=== PATIENT | male | born 1955 | race Caucasian/White ===

== ENCOUNTER 2016-06-29 10:57 | Inpatient (IN) | payer BC ==
[2016-06-29] MEDS ORDERED: COLCHICINE 0.6 MG TAB PO STA (11:07)
[2016-06-29] MEDS ORDERED: ATORVASTATIN 40 MG TAB PO STA (11:08)
--- NOTE | 2016-06-29 11:13 | ED ---
General Adult HPI - General Chief complaint: Chest Pain Stated complaint: Stemi Time Seen by Provider: 06/29/16 10:57 Source: patient, RN notes reviewed Mode of arrival: EMS Limitations: no limitations - History of Present Illness Initial comments: This is a 60-year-old male who presents to the emergency department complaining of chest pain. Patient states on Sunday he was vomiting and had what he thought was a stomach flu. Patient states on Sunday he felt better on Sunday he still wasn't feeling quite himself however yesterday he started having upper chest pain particularly when he took a deep breath or late flat. Patient states the only time he didn't seem to have this upper chest pain was when he leaned forward sitting up. Patient states this persisted throughout the day today so he went to see his medical doctor. At that office they did a EKG and were concerned about the EKG showed a sent him to the emergency department. Patient states he is not short of breath he is denying palpitations. Patient denies any recent fever or chills or cough. Patient states he's had no upper respiratory like symptoms. Patient denies any current abdominal pain he denies any recent diarrheal episodes. Patient states his he lays here he has no pain if he lies flat it will come on in the upper part of his chest or takes a very large breath. - Related Data Home Medications Medication Instructions Recorded Confirmed Fenofibrate,Micronized 134 mg PO DAILY 06/29/16 06/29/16 [Fenofibrate] Zolpidem Tartrate [Zolpidem 10 mg PO HS 06/29/16 06/29/16 Tartrate] Allergies Allergy/AdvReac Type Severity Reaction Status Date / Time No Known Allergies Allergy Verified 06/29/16 11:59 Review of Systems ROS Statement: Those systems with pertinent positive or pertinent negative responses have been documented in the HPI. ROS Other: All systems not noted in ROS Statement are negative. Past Medical History Past Medical History: Hyperlipidemia History of Any Multi-Drug Resistant Organisms: None Reported Past Surgical History: Tonsillectomy Additional Past Surgical History / Comment(s): ear operation,, vasectomy Past Psychological History: Anxiety Smoking Status: Former smoker Past Alcohol Use History: None Reported Past Drug Use History: None Reported General Exam - General Exam Comments Initial Comments: GENERAL: Patient is well-developed and well-nourished. Patient is nontoxic and well- hydrated and is in mild distress. ENT: Neck is soft and supple. No significant lymphadenopathy is noted. Oropharynx is clear. Moist mucous membranes. Neck has full range of motion without eliciting any pain. There is no thyroid enlargement and no masses were felt. EYES: The sclera were anicteric and conjunctiva were pink and moist. Extraocular movements were intact and pupils were equal round and reactive to light. Eyelids were unremarkable. PULMONARY: Unlabored respirations. Good breath sounds bilaterally. No audible rales rhonchi or wheezing was noted. CARDIOVASCULAR: There is a regular rate and rhythm without any murmurs gallops or rubs. ABDOMEN: Soft and nontender with normal bowel sounds. No palpable organomegaly was noted. There is no palpable pulsatile mass. SKIN: Skin is clear with no lesions or rashes and otherwise unremarkable. NEUROLOGIC: Patient is alert and oriented x3. Cranial nerves II through XII are grossly intact. Motor and sensory are also intact. Normal speech, volume and content. Symmetrical smile. MUSCULOSKELETAL: Normal extremities with adequate strength and full range of motion. No lower extremity swelling or edema. No calf tenderness. LYMPHATICS: No significant lymphadenopathy is noted PSYCHIATRIC: Normal psychiatric evaluation. Limitations: no limitations Course Vital Signs 06/29/16 06/29/16 10:58 11:14 Temperature 98.7 F Pulse Rate 74 90 Respiratory 17 18 Rate Blood Pressure 123/74 114/70 O2 Sat by Pulse 95 99 Oximetry Medical Decision Making - Medical Decision Making Chest x-ray shows no acute abnormality. Dr. Mann came down and saw the patient in the emergency department he did not want any heparin started as he believed it to be pericarditis. He also requested a culture eliciting the started. - Lab Data Result diagrams: 06/29/16 11:05 06/29/16 11:05 Lab Results 06/29/16 06/29/16 06/29/16 Range/Units 11:05 11:05 11:05 WBC 12.1 H (3.8-10.6) k/uL RBC 5.00 (4.30-5.90) m/uL Hgb 15.0 (13.0-17.5) gm/dL Hct 43.0 (39.0-53.0) % MCV 86.0 (80.0-100.0) fL MCH 30.1 (25.0-35.0) pg MCHC 35.0 (31.0-37.0) g/dL RDW 13.1 (11.5-15.5) % Plt Count 222 (150-450) k/uL Neutrophils % 82 % Lymphocytes % 10 % Monocytes % 6 % Eosinophils % 0 % Basophils % 0 % Neutrophils # 10.0 H (1.3-7.7) k/uL Lymphocytes # 1.2 (1.0-4.8) k/uL Monocytes # 0.8 (0-1.0) k/uL Eosinophils # 0.0 (0-0.7) k/uL Basophils # 0.1 (0-0.2) k/uL PT (9.0-12.0) sec INR (<1.1) APTT (22.0-30.0) sec Sodium 145 (137-145) mmol/L Potassium 3.9 (3.5-5.1) mmol/L Chloride 108 H (98-107) mmol/L Carbon Dioxide 23 (22-30) mmol/L Anion Gap 14 mmol/L BUN 11 (9-20) mg/dL Creatinine 0.91 (0.66-1.25) mg/dL Est GFR (MDRD) Af Amer >60 (>60 ml/min/1.73 sqM) Est GFR (MDRD) Non-Af >60 (>60 ml/min/1.73 sqM) Glucose 129 H (74-99) mg/dL Calcium 10.0 (8.4-10.2) mg/dL Magnesium 1.5 L (1.6-2.3) mg/dL Total Bilirubin 1.4 H (0.2-1.3) mg/dL AST 37 (17-59) U/L ALT 67 (21-72) U/L Alkaline Phosphatase 50 (38-126) U/L Total Creatine Kinase 47 L (55-170) U/L CK-MB (CK-2) 0.4 (0.0-2.4) ng/mL CK-MB (CK-2) Rel Index 0.9 Troponin I <0.012 (0.000-0.034) ng/mL Total Protein 7.0 (6.3-8.2) g/dL Albumin 4.1 (3.5-5.0) g/dL 06/29/16 Range/Units 11:05 WBC (3.8-10.6) k/uL RBC (4.30-5.90) m/uL Hgb (13.0-17.5) gm/dL Hct (39.0-53.0) % MCV (80.0-100.0) fL MCH (25.0-35.0) pg MCHC (31.0-37.0) g/dL RDW (11.5-15.5) % Plt Count (150-450) k/uL Neutrophils % % Lymphocytes % % Monocytes % % Eosinophils % % Basophils % % Neutrophils # (1.3-7.7) k/uL Lymphocytes # (1.0-4.8) k/uL Monocytes # (0-1.0) k/uL Eosinophils # (0-0.7) k/uL Basophils # (0-0.2) k/uL PT 11.2 (9.0-12.0) sec INR 1.1 (<1.1) APTT 24.8 (22.0-30.0) sec Sodium (137-145) mmol/L Potassium (3.5-5.1) mmol/L Chloride (98-107) mmol/L Carbon Dioxide (22-30) mmol/L Anion Gap mmol/L BUN (9-20) mg/dL Creatinine (0.66-1.25) mg/dL Est GFR (MDRD) Af Amer (>60 ml/min/1.73 sqM) Est GFR (MDRD) Non-Af (>60 ml/min/1.73 sqM) Glucose (74-99) mg/dL Calcium (8.4-10.2) mg/dL Magnesium (1.6-2.3) mg/dL Total Bilirubin (0.2-1.3) mg/dL AST (17-59) U/L ALT (21-72) U/L Alkaline Phosphatase (38-126) U/L Total Creatine Kinase (55-170) U/L CK-MB (CK-2) (0.0-2.4) ng/mL CK-MB (CK-2) Rel Index Troponin I (0.000-0.034) ng/mL Total Protein (6.3-8.2) g/dL Albumin (3.5-5.0) g/dL Disposition Clinical Impression: Chest pain, Pericarditis Disposition: ADMITTED IP TO THIS [facility] Time of Disposition: 12:51
[2016-06-29] MEDS ORDERED: ACETAMINOPHEN TAB 500 MG TAB PO STA (11:19)
[2016-06-29] MEDS ORDERED: LORazepam 2 MG/ML SYRINGE IV STA (11:19)
[2016-06-29 11:37] LABS: Basophils # (A) 0.1 k/uL (0-0.2); Basophils % (A) 0 %; CH 30.8; Eosinophils % (A) 0 %; HDW 2.93; Luc # (Auto) 0.14; Luc % (Auto) 1; Lymphocytes # (A) 1.2 k/uL (1.0-4.8); Lymphocytes % (A) 10 %; MCH 30.1 pg (25.0-35.0); Mean Platelet Volume 7.9; Monocytes # (A) 0.8 k/uL (0-1.0); Monocytes % (A) 6 %; Neutrophils % (A) 82 %; RDW 13.1 % (11.5-15.5); WBC 12.1 k/uL (3.8-10.6); WBC (Perox) 11.89
[2016-06-29 11:49] LABS: ALT 67 U/L (21-72); AST 37 U/L (17-59); Alkaline Phosphatase 50 U/L (38-126); Anion Gap 14 mmol/L; Blood Urea Nitrogen 11 mg/dL (9-20); Carbon Dioxide 23 mmol/L (22-30); Chloride 108 mmol/L (98-107); Glucose 129 mg/dL (74-99); Magnesium 1.5 mg/dL (1.6-2.3); Non-African American GFR(MDRD) >60 (>60 ml/min/1.73 sqM); Potassium 3.9 mmol/L (3.5-5.1); Sodium 145 mmol/L (137-145); Total Bilirubin 1.4 mg/dL (0.2-1.3)
[2016-06-29 11:58] LABS: Creatine Kinase 47 U/L (55-170)
[2016-06-29] MEDS ORDERED: FAMOTIDINE 20 MG TAB PO STA (12:07)
[2016-06-29 12:08] LABS: INR 1.1 (<1.1); Partial Thromboplastin Time 24.8 sec (22.0-30.0); Prothrombin Time 11.2 sec (9.0-12.0)
[2016-06-29 12:12] LABS: Creatine Kinase MB 0.4 ng/mL (0.0-2.4); Troponin I <0.012 ng/mL (0.000-0.034)
--- NOTE | 2016-06-29 12:13 | XR ---
EXAMINATION TYPE: XR chest 2V DATE OF EXAM: 06/29/2016 12:06 PM COMPARISON: NONE INDICATION: Chest pain TECHNIQUE: Frontal and lateral views of the chest are obtained. FINDINGS: The heart size is normal. The pulmonary vasculature is normal. There are streak opacities at the right base and along the left heart border. Correlate for atelectas is. IMPRESSION: 1. Mild streak opacities bilateral lung bases. Correlate for atelectasis. Follow-up can be performed as clinically indicated.
[2016-06-29] MEDS ORDERED: NITROGLYCERIN SL TABS 0.4 MG TAB SUBLINGUAL PRN (12:52)
--- NOTE | 2016-06-29 12:57 | P.CRDCN ---
History of Present Illness Chief complaint: Pericarditis History of present illness: Patient admitted with a viral pericarditis, normal troponins NO STEROIDS AT ALL , DURING THIS ADMISSION Past Medical History Past Medical History: Hyperlipidemia History of Any Multi-Drug Resistant Organisms: None Reported Past Surgical History: Tonsillectomy Additional Past Surgical History / Comment(s): ear operation,, vasectomy Past Psychological History: Anxiety Smoking Status: Former smoker Past Alcohol Use History: None Reported Past Drug Use History: None Reported Medications and Allergies Home Medications Medication Instructions Recorded Confirmed Type Fenofibrate,Micronized 134 mg PO DAILY 06/29/16 06/29/16 History [Fenofibrate] Zolpidem Tartrate [Zolpidem 10 mg PO HS 06/29/16 06/29/16 History Tartrate] Allergies Allergy/AdvReac Type Severity Reaction Status Date / Time No Known Allergies Allergy Verified 06/29/16 11:59 Physical Exam Vitals: Vital Signs Temp Pulse Resp BP Pulse Ox 06/29/16 11:14 90 18 114/70 99 06/29/16 10:58 98.7 F 74 17 123/74 95 Intake and Output 06/28/16 06/29/16 06/29/16 22:59 06:59 14:59 Other: Weight 95.254 kg Patient Weight 06/30/16 06:59 Weight 95.254 kg Results 06/29/16 11:05 06/29/16 11:05 Cardiac Enzymes 06/29/16 06/29/16 Range/Units 11:05 11:05 AST 37 (17-59) U/L CK-MB (CK-2) 0.4 (0.0-2.4) ng/mL Troponin I <0.012 (0.000-0.034) ng/mL Coagulation 06/29/16 Range/Units 11:05 PT 11.2 (9.0-12.0) sec APTT 24.8 (22.0-30.0) sec CBC 06/29/16 Range/Units 11:05 WBC 12.1 H (3.8-10.6) k/uL RBC 5.00 (4.30-5.90) m/uL Hgb 15.0 (13.0-17.5) gm/dL Hct 43.0 (39.0-53.0) % Plt Count 222 (150-450) k/uL Comprehensive Metabolic Panel 06/29/16 Range/Units 11:05 Sodium 145 (137-145) mmol/L Potassium 3.9 (3.5-5.1) mmol/L Chloride 108 H (98-107) mmol/L Carbon Dioxide 23 (22-30) mmol/L BUN 11 (9-20) mg/dL Creatinine 0.91 (0.66-1.25) mg/dL Glucose 129 H (74-99) mg/dL Calcium 10.0 (8.4-10.2) mg/dL AST 37 (17-59) U/L ALT 67 (21-72) U/L Alkaline Phosphatase 50 (38-126) U/L Total Protein 7.0 (6.3-8.2) g/dL Albumin 4.1 (3.5-5.0) g/dL Current Medications Generic Name Dose Route Start Last Admin Trade Name Freq PRN Reason Stop Dose Admin Aspirin 325 mg 06/30/16 09:00 Aspirin PO DAILY JOCELYN Colchicine 0.6 mg 06/29/16 21:00 Colcrys PO BID JOCELYN Famotidine 20 mg 06/29/16 11:15 Pepcid IV DAILY JOCELYN Magnesium Sulfate/Dextrose 1 100 mls @ 200 mls/hr 06/29/16 13:00 gm/ IV Solution IVPB 06/29/16 14:29 Q1H JOCELYN Nitroglycerin 0.4 mg 06/29/16 12:52 Nitrostat SUBLINGUAL Q5M PRN Chest Pain Intake and Output 06/28/16 06/29/16 06/29/16 22:59 06:59 14:59 Other: Weight 95.254 kg Patient Weight 06/30/16 06:59 Weight 95.254 kg 06/29/16 11:05 06/29/16 11:05
[2016-06-29] MEDS: MAGNESIUM SULFATE-D5W PMX 1 GM in DEXTROSE/WATER 1 100ML.BAG IVPB SCH ×2 (13:14→15:26)
--- NOTE | 2016-06-29 13:55 | CONS ---
DATE OF CONSULTATION: I got a call from the emergency room saying that there was an acute ST-segment elevation NC on the way. I arrived at the ER and the patient arrived subsequently. He was smiling and looked rather comfortable. He denied any chest discomfort other than when he took a really deep breath. He stated that he was not feeling well for the last several days. He had diarrhea and therefore went to the primary care physician's office, Dr. Brown's office. He was seen there, a chest x-ray was ordered. When he took a deep breath in, he would get chest pain. He is very clear about the timing of the pain. When he stops breathing, he has no chest pain. When he takes a deep breath in, he has chest pain. When he lies down, he is more uncomfortable. He denies any dizziness, lightheadedness and no palpitations. No loss of consciousness. PAST HISTORY: None, other dyslipidemia but he does not remember the pill that he takes. His 12-lead ECG was reviewed and shows sinus rhythm with a subtle ST elevation of 1 mm in the inferior leads with NH depression in the precordial leads and NH elevation in aVR. There is also NH depression in aVF and in lead 2, 3 and aVF. REVIEW OF SYSTEMS: He low-grade fever with no chills, rigors but he had gastrointestinal symptoms. No hematuria or dysuria. No strokes or seizures. No skin lesions or musculoskeletal complaints. No shortness of breath, chest pain only when he took a deep breath or when he laid down. On examination, his blood pressure 114/70 mmHg, pulse rate was in the 70s to 90s Head and neck examination are normal. No JVD, thyromegaly, or carotid bruits. Heart sounds are normal. There is no rub. No murmur. Breath sounds are normal. No rhonchi. No crackles. Abdomen is soft, nontender. Extremities are warm. No edema. Labs are reviewed. The labs came back later. Troponin is normal, potassium is 3.9. Magnesium is low and I gave him IV magnesium 2 gm, magnesium is 1.5. IMPRESSION: Likely viral gastroenteritis followed by pericarditis. His ECG is typical for pericarditis, not an acute ST-elevation NC. His symptoms are consistent with pericarditis. He does not have pericardial rub. SUGGEST: Colchicine, a 2-D echo and Doppler study. Viral titers which are sent from the ER, 3 set of cardiac enzymes, first set of cardiac enzymes are normal. His white count is mildly elevated at 12,000 and his neutrophil count is 10. I would also recommend that he should not get any steroids during this admission.
[2016-06-29] MEDS: FAMOTIDINE 20 MG/2 ML VIAL IV SCH (15:33)
[2016-06-29] MEDS: INDOMETHACIN 25 MG CAP PO SCH ×2 (15:34→20:31)
[2016-06-29 16:09] LABS: Creatine Kinase 35 U/L (55-170)
[2016-06-29 16:22] LABS: Creatine Kinase MB 0.4 ng/mL (0.0-2.4); Troponin I <0.012 ng/mL (0.000-0.034)
[2016-06-29 19:30] VITALS: RESP 16
[2016-06-29] MEDS: COLCHICINE 0.6 MG TAB PO SCH (20:33)
[2016-06-29 20:52] LABS: Glucose,Whole Blood 131 mg/dL (75-99)
[2016-06-29] MEDS ORDERED: ZOLPIDEM 5 MG TAB PO PRN (21:06)
[2016-06-29] MEDS ORDERED: ACETAMINOPHEN TAB 325 MG TAB PO PRN (21:06)
[2016-06-29] MEDS ORDERED: ZOLPIDEM 10 MG TAB PO PRN (21:07)
[2016-06-29 22:49] LABS: Creatine Kinase 30 U/L (55-170)
[2016-06-29 23:01] LABS: Creatine Kinase MB 0.3 ng/mL (0.0-2.4); Troponin I <0.012 ng/mL (0.000-0.034)
[2016-06-30] MEDS: INDOMETHACIN 25 MG CAP PO SCH (07:52)
[2016-06-30] MEDS: FAMOTIDINE 20 MG/2 ML VIAL IV SCH (07:52)
[2016-06-30] MEDS: COLCHICINE 0.6 MG TAB PO SCH (07:53)
[2016-06-30] MEDS ORDERED: ASPIRIN 325 MG TAB PO SCH (09:00)
--- NOTE | 2016-06-30 09:47 | ECHOF ---
Referral Reason:Chest pain MEASUREMENTS -------- HEIGHT: 175.3 cm WEIGHT: 93.0 kg BP: 114/70 RVIDd: 3.3 cm (< 3.3) IVSd: 0.9 cm (0.6 - 1.1) LVIDd: 5.5 cm (3.9 - 5.3) LVPWd: 1.0 cm (0.6 - 1.1) IVSs: 1.6 cm LVIDs: 3.3 cm LVPWs: 1.9 cm LA Diam: 3.6 cm (2.7 - 3.8) LAESV Index (A-L): 18.48 ml/m Ao Diam: 3.4 cm (2.0 - 3.7) AV Cusp: 2.0 cm (1.5 - 2.6) LA Diam: 4.0 cm (2.7 - 3.8) MV EXCURSION: 11.800 mm (> 18.000) MV EF SLOPE: 43 mm/s (70 - 150) EPSS: 1.2 cm MV E Jonathan: 0.56 m/s MV DecT: 268 ms MV A Jonathan: 0.65 m/s MV E/A Ratio: 0.87 FINDINGS -------- Sinus rhythm. This was a technically good study. Left ventricular wall thickness is normal. Overall left ventricular systolic function is normal with, an EF between 55 - 60 %. The right ventricle is normal in size. Normal LA size by volume 22+/-6 ml/m2. The right atrium is normal in size. The aortic valve is trileaflet and appears structurally normal. Mild mitral annular calcification present. Trace tricuspid regurgitation present. Pulmonic valve appears structurally normal. The aortic root size is normal. There is no pericardial effusion. CONCLUSIONS -------- 1. Sinus rhythm. 2. Trace tricuspid regurgitation present. 3. Pulmonic valve appears structurally normal. 4. The aortic root size is normal. 5. There is no pericardial effusion. 6. This was a technically good study. 7. Left ventricular wall thickness is normal. 8. Overall left ventricular systolic function is normal with, an EF between 55 - 60 %. 9. The right ventricle is normal in size. 10. Normal LA size by volume 22+/-6 ml/m2. 11. The right atrium is normal in size. 12. The aortic valve is trileaflet and appears structurally normal. 13. Mild mitral annular calcification present. SPEECH THERAPY DIRECTOR: Angel Obregon RDCS
[2016-06-30 13:00] VITALS: BP 113/74; PULSE 71; TEMP 97.7
--- NOTE | 2016-06-30 13:30 | P.PN ---
Subjective Principal diagnosis: This is a pleasant 60-year-old gentleman with a recent history of episode of diarrhea lasting several days presented to the emergency department with complaint of chest discomfort upon inhalation. Upon presentation EKG did show some subtle ST elevation of 1 mm in the inferior leads precordial leads. Troponins were negative. Patient was found to have viral pericarditis and has been on indomethacin and colchicine he underwent echocardiogram that showed normal ejection fraction. Upon examination today, patient is sitting up in a chair. He is quite comfortable today and denies any further complaints of chest pain unless he takes an extreme deep breath in. He denies any palpitations, lightheadedness, dizziness, syncope, palpitations or edema. Objective - Vital Signs Vital signs: Vital Signs Temp 97.7 F 06/30/16 12:00 Pulse 71 06/30/16 12:00 Resp 16 06/30/16 12:00 BP 113/74 06/30/16 12:00 Pulse Ox 96 06/30/16 12:00 Intake & Output 06/29/16 06/30/16 06/30/16 18:59 06:59 18:59 Intake Total 356 Balance 356 Weight 94.8 kg Intake: Oral 356 Other: # Voids 1 - Exam PHYSICAL EXAMINATION: HEENT: Head is atraumatic, normocephalic. Pupils equal, round. Neck is supple. There is no elevated jugular venous pressure. HEART EXAMINATION: Heart sounds regular, S1 and S2 normal. No murmur or gallop heard. CHEST EXAMINATION: Lungs are clear to auscultation and precussion. No chest wall tenderness is noted on palpation or with deep breathing. ABDOMEN: Soft, nontender. Bowel sounds are heard. No organomegaly noted. EXTREMITIES: 2+ peripheral pulses with no evidence of peripheral edema and no calf tenderness noted. NEUROLOGIC patient is awake, alert and oriented x3. . - Labs CBC & Chem 7: 06/29/16 11:05 06/29/16 11:05 Labs: Abnormal Lab Results - Last 24 Hours (Table) 06/29/16 06/29/16 06/29/16 Range/Units 15:38 20:51 22:18 POC Glucose (mg/dL) 131 H (75-99) mg/dL Total Creatine Kinase 35 L 30 L (55-170) U/L HDL Cholesterol (40-60) mg/dL 06/30/16 Range/Units 06:09 POC Glucose (mg/dL) (75-99) mg/dL Total Creatine Kinase (55-170) U/L HDL Cholesterol 22 L (40-60) mg/dL Assessment and Plan Plan: Assessment and plan #1 pericarditis, likely following viral gastroenteritis #2 hyperlipidemia From cardiology's perspective, patient may be discharged home on indomethacin and colchicine. He will be seen in the office by Dr. Guallpa in one week. ROOF DESIGNER note has been reviewed, I agree with a documented findings and plan of care. Patient was seen and examined.
--- NOTE | 2016-06-30 17:31 | P.HPIM ---
History of Present Illness H&P Date: 06/30/16 (dC summary as well) 60-year-old gentleman comes in to the hospital with complaints of chest pressure. Patient stated initially he had some symptoms of epigastric discomfort that was associated with nausea and vomiting. Patient apparently was having generalized weakness and did not feel right for the next 24 hours. This was a week prior to admission. Thereafter patient started noticing intermittent chest pressure midsternal location nonradiating exacerbated with positions. Patient came in to the hospital initial EKG there was some concern about acute coronary syndrome however patient was noted to have diffuse ST elevation with IN depression consistent with pericarditis. No troponin leak was noted. Patient underwent echocardiogram which did not reveal any pericardial effusion or wall motion abdomen is at this time. Denies having difficulty breathing nausea vomiting or diarrhea. Currently is symptom-free. Review of Systems All systems: negative (Noted in HPI) Past Medical History Past Medical History: Eye Disorder, Hyperlipidemia Additional Past Medical History / Comment(s): Cluster headaches, past problem with bilateral eye blurring-was told he had a leak at times behind his eyes. History of Any Multi-Drug Resistant Organisms: None Reported Past Surgical History: Adenoidectomy, Tonsillectomy Additional Past Surgical History / Comment(s): R inner ear reconstruction, colonoscopy/polypectomy-benign, vasectomy Past Anesthesia/Blood Transfusion Reactions: Postoperative Nausea & Vomiting ( PONV) Past Psychological History: Anxiety Additional Psychological History / Comment(s): Pt resides with his spouse and 2 children. He is independent. Smoking Status: Former smoker Past Alcohol Use History: None Reported Additional Past Alcohol Use History / Comment(s): Pt states he started smoking at age 21 yrs and quit in 1995. Past Drug Use History: None Reported - Past Family History Father Family Medical History: Coronary Artery Disease (CAD) Additional Family Medical History / Comment(s): Father had CABG in his 70's. He is 90yrs old. Mother Family Medical History: Diabetes Mellitus, Renal Disease Additional Family Medical History / Comment(s): Mother had heart problems. Medications and Allergies Home Medications Medication Instructions Recorded Confirmed Type Fenofibrate,Micronized 134 mg PO DAILY 06/29/16 06/29/16 History [Fenofibrate] Zolpidem Tartrate [Zolpidem 10 mg PO HS 06/29/16 06/29/16 History Tartrate] Allergies Allergy/AdvReac Type Severity Reaction Status Date / Time No Known Allergies Allergy Verified 06/29/16 11:59 Physical Exam Vitals: Vital Signs Temp Pulse Resp BP Pulse Ox 06/30/16 12:00 97.7 F 71 16 113/74 96 06/30/16 07:54 97.6 F 68 16 111/67 97 06/30/16 04:00 98.2 F 57 L 16 107/67 97 06/30/16 00:00 78 16 121/67 96 06/29/16 20:00 97.0 F L 85 16 104/66 95 06/29/16 19:26 73 16 Intake and Output 06/30/16 06/30/16 06/30/16 06:59 14:59 22:59 Intake Total 356 Balance 356 Intake: Oral 356 Other: Weight 94.8 kg Physical exam Gen. appearance oriented 3 in no distress Neck is supple no JVD Lungs good air entry clear to auscultation no rhonchi or wheezing Heart S1-S2 heard regular rate and rhythm no murmurs appreciated Abdomen is soft nontender no organomegaly bowel sounds are intact Neurologically cranial nerves II-12 grossly intact no focal motor or sensory deficits noted Skin no abnormalities appreciated Results CBC & Chem 7: 06/29/16 11:05 06/29/16 11:05 Labs: Abnormal Lab Results - Last 24 Hours (Table) 06/29/16 06/29/16 06/30/16 Range/Units 20:51 22:18 06:09 POC Glucose (mg/dL) 131 H (75-99) mg/dL Total Creatine Kinase 30 L (55-170) U/L HDL Cholesterol 22 L (40-60) mg/dL Thrombosis Risk Factor Assmnt - Choose All That Apply Any of the Below Risk Factors Present?: Yes Each Factor Represents 1 point: Age 41-60 years, Obesity (BMI >25) Other Risk Factors: No Other congenital or acquired thrombophilia - If yes, enter type in comment: No Thrombosis Risk Factor Assessment Total Risk Factor Score: 2 Thrombosis Risk Factor Assessment Level: Low Risk Assessment and Plan Plan: #1 acute pericarditis very consistent with that EKG findings of IN depression and trace ST elevations. #2 dyslipidemia #3 recent viral gastroenteritis Plan patient underwent an echocardiogram there is no signs of effusion. Patient will be discharged on colchicine and indocin. Patient is to follow up with cardiology in the next week. Patient was stable on discharge.
[2016-07-08 13:33] LABS: Echovirus AB Type 11 <1:10 (<1:10); Echovirus AB Type 6 1:10 (<1:10); Echovirus AB Type 9 1:40 (<1:10)
== END 2016-06-30 16:17 | disposition home or self-care (01) | DRG 316 ==
LOC: EC 10:57 → 6SEL 12:52
PROVIDERS: ADMIT Internal Medicine; ATTEND Hospitalist
DX: I30.9 Acute pericarditis, unspecified (principal); E78.5 Hyperlipidemia, unspecified; F41.9 Anxiety disorder, unspecified; Z87.891 Personal history of nicotine dependence; Z79.899 Other long term (current) drug therapy; Z82.49 Family history of ischemic heart disease and other diseases of the circulatory system
CPT/HCPCS: 36415; 71020; 80053; 80061; 82550; 82553; 83735; 84484; 85025; 85610; 85730; 86603; 86658; 93005; 93306; 96374; 99285

== ENCOUNTER → 2016-06-29 | Outpatient (CLI) | payer BC ==
--- NOTE | 2016-06-30 13:34 | XR ---
EXAMINATION TYPE: XR chest 2V DATE OF EXAM: 06/29/2016 9:51 AM COMPARISON: 06/29/2016 HISTORY: Chest pain FINDINGS: Persistent area of consolidation bilaterally. No pleural effusion or pneumothorax. No overt failure. Arthropathy of the shoulders noted. IMPRESSION: 1. Stable bilateral subsegmental areas of consolidation most typical of atelectasis. Correlate clinic ally to exclude pneumonia..
== END | disposition home or self-care (01) ==
LOC: RADXRYALE 09:40
PROVIDERS: ATTEND Physician Assistant Medical
DX: J18.1 Lobar pneumonia, unspecified organism (principal)
CPT/HCPCS: 71020

== ENCOUNTER → 2017-12-11 | Outpatient (CLI) | payer BC ==
--- NOTE | 2017-12-11 17:01 | CT ---
EXAMINATION TYPE: CT hip RT wo con DATE OF EXAM: 12/11/2017 COMPARISON: HISTORY: Rt hip pain CT DLP: 548 mGycm Automated exposure control for dose reduction was used. Unenhanced CT of the right hip was performed in the coronal axial and sagittal data sets. Bone and so ft tissue window settings reviewed. FINDINGS: There is no evidence for fracture or dislocation. Muscular structures are grossly intact without evidence for tear or intramuscular hematoma. No evidence for inflammatory process or abnormal collection. Mild degenerative narrowing right hip roseanne int space. No evidence for femoral acetabular impingement. No pelvic masses seen. Mild sigmoid diverticulosis. IMPRESSION: NO SIGNIFICANT ABNORMALITY SEEN. IF SYMPTOMS PERSIST CONSIDER MRI.
== END | disposition home or self-care (01) ==
LOC: RADCTMAIN 16:12
PROVIDERS: ATTEND Family Medicine
DX: M25.551 Pain in right hip (principal); S76.219D Strain of adductor muscle, fascia and tendon of unspecified thigh, subsequent encounter

== ENCOUNTER → 2018-01-03 | Outpatient (CLI) | payer BC ==
--- NOTE | 2018-01-03 21:48 | MR ---
EXAMINATION TYPE: MR hip RT wo con DATE OF EXAM: 01/03/2018 COMPARISON: CT right hip August 11, 2017. HISTORY: Rt hip pain x 2 mos, Standard multiplanar, multisequence MRI departmental protocol Multiplanar, multisequence images of the pelvis focusing on the right hip were acquired. FINDINGS: Bone marrow signal intensity of the pelvis including right hip is felt within normal limits . No suspicious edema is present. No suspicious serpiginous low T1 signal is noted. There are symmetric small hip joint effusions. Mild symmetric axial joint space loss bilaterally is p resent. Minimal acetabular spurring superior lateral aspect is present bilaterally. No suspicious miriam in adenopathy or bowel containing hernias. Symmetric small fat-containing inguinal hernias are noted. Muscle bulk is preserved. No suspicious fluid signal level of the lesser greater trochanters bilaterally. Labrum appears grossl y intact given limitations of nonarthrogram study. Visualized pelvis redemonstrates occasional sigmoid colonic diverticula. No suspicious bowel dilatati on. Urinary bladder is felt within normal limits. Prostate and seminal vesicles felt unremarkable. No concerning pelvic fluid collection. IMPRESSION: No suspicious finding is seen to account for patient's symptoms.
== END | disposition home or self-care (01) ==
LOC: RADMRIMAIN 15:45
PROVIDERS: ATTEND Physician Assistant Medical
DX: M25.551 Pain in right hip (principal)

== ENCOUNTER → 2021-04-26 | Outpatient (CLI) | payer BC ==
--- NOTE | 2021-04-26 13:42 | MR ---
EXAMINATION TYPE: MR brain wo/w con DATE OF EXAM: 04/26/2021 COMPARISON: NONE HISTORY: Otitis externa, visual loss right eye TECHNIQUE: Multiplanar, multisequence images of the brain and brainstem is performed without and with IV contras t, utilizing 10 mL intravenous Gadavist . FINDINGS: Diffusion weighted images demonstrate no evidence of a recent infarct or other diffusion ab normality. There is mild ventricular and sulcal prominence. Mild vague areas of T2 hyperintensity in the periventricular white matter Midline structures demonstrate normal morphology. The craniocervical junction appears within normal limits. Post contrast images demonstrate no abnormal enhancement. The dural venous sinuses appear pa tent. Mild mucosal thickening involving ethmoid sinuses bilaterally. Small mucous retention cysts and /or polyps in the inferior right maxillary sinus sagittal image 17. IMPRESSION: Mild diffuse age-related cerebral atrophy and chronic small vessel ischemic change. Mild chronic paranasal sinusitis. No suspicious enhancement.
== END | disposition home or self-care (01) ==
LOC: RADMRIMAIN 11:54
PROVIDERS: ATTEND Family Medicine
DX: G31.9 Degenerative disease of nervous system, unspecified (principal); I67.82 Cerebral ischemia
CPT/HCPCS: 70553; A9585

== ENCOUNTER → 2022-02-16 | Outpatient (CLI) | payer BC ==
[2022-02-16 14:05] LABS: African American GFR (CKD) >90 (>60 ml/min/1.73 sqM); Blood Urea Nitrogen 11 mg/dL (9-20); Non-African American GFR(CKD) 80 (>60 ml/min/1.73 sqM)
--- NOTE | 2022-02-16 15:29 | CT ---
EXAMINATION TYPE: CT soft tissue neck w con DATE OF EXAM: 02/16/2022 COMPARISON: None HISTORY: 66-year-old male R49.0 DYSPHONIA, R09.89 SYMPTOMS AND SIGNS INVOLVING, COUGH AND FEELS LIKE SOMETHING IS STUCK IN THROAT. TECHNIQUE: Contiguous axial scanning of the soft tissues of the neck performed with IV Contrast, jose ent injected with 70 mL of Isovue 300. Coronal/sagittal reconstructions performed. CT DLP: 773.90 mGycm Automated exposure control for dose reduction was used. FINDINGS: The thyroid, submandibular, and parotid glands appear satisfactory. Visualized intracranial structures, orbits and globes, and mastoid air cells appear clear. Lobulated mucosal retention cysts measuring up to 2.6 cm on the floor of the right maxillary sinus. Nasopharynx appears clear. Limitation in assessment of the oral cavity due to extensive dental amalgam artifact. There seem to b e some small dental caries involving the maxillary teeth. Mild bilateral lingual tonsillar hypertrophy. Oropharynx otherwise appears clear. Epiglottis and prevertebral soft tissues are satisfactory. Glottic and subglottic structures as well as the tracheal column and visualized upper lungs appear cl ear. Large caliber to the main right pulmonary artery at 3.1 cm suggesting underlying pulmonary arterial h ypertension. No cervical lymphadenopathy identified.. Bones: Mild degenerative disc disease C4-C6 levels. IMPRESSION: 1. LOBULATED MUCOSAL RETENTION CYSTS ALONG THE FLOOR OF THE RIGHT MAXILLARY SINUS MEASURING UP TO 2.6 CM. 2. IN THE UPPER CHEST, SUSPECT UNDERLYING PULMONARY ARTERIAL HYPERTENSION. 3. NO SUSPICIOUS NECK MASS OR CERVICAL LYMPHADENOPATHY SEEN. THERE IS VERY MILD LINGUAL TONSILLAR HYP ERTROPHY NOTED.
== END | disposition home or self-care (01) ==
LOC: RADCTMAIN 13:24
PROVIDERS: ATTEND Otolaryngology
DX: J34.1 Cyst and mucocele of nose and nasal sinus (principal); J35.1 Hypertrophy of tonsils
CPT/HCPCS: 82565; 84520; 70491; 36415; Q9967

== ENCOUNTER → 2023-06-14 | Outpatient (CLI) | payer BC ==
--- NOTE | 2023-06-18 15:18 | PE ---
EXAMINATION TYPE: PET CT fusion skull to thigh DATE OF EXAM: 06/14/2023 COMPARISON: CT soft tissue neck 02/16/2022 Prior PET/CT: No prior PET/CT at this location HISTORY: Rectal cancer TECHNIQUE: Following the intravenous administration of 9.4 mCi of F-18 FDG, whole body images are pe rformed from the skull base to the midthigh. Images are reviewed on the computer in the coronal, axi al, and sagittal planes. Reconstructed rotating images are created on independent workstation and re viewed on the computer. A localization and attenuation correction CT is performed in conjunction wi th the PET scan. DLP: 812.12 mGycm SCAN: Initial Blood glucose: 112 mg/dL Average Mediastinum SUV: 1.99 Average Liver SUV: 3.01 FINDINGS: NECK: No abnormal uptake THORAX: No abnormal uptake ABDOMEN: No abnormal uptake PELVIS: No abnormal uptake OSSEOUS STRUCTURES: No abnormal uptake LOCALIZATION CT: Gallbladder is decompressed. Small gallstones or sludge is likely present. Periumbil ical hernia containing mesenteric fat is evident. COMPARISON: None IMPRESSION: 1. No suspicious uptake to suggest recurrent or metastatic rectal cancer.
== END | disposition home or self-care (01) ==
LOC: RADPETMAIN 12:58
PROVIDERS: ATTEND Internal Medicine Hematology & Oncology
DX: C20 Malignant neoplasm of rectum (principal)
CPT/HCPCS: 78815; A9552

== ENCOUNTER → 2023-06-25 | Outpatient (CLI) | payer BC, MEDICARE ==
--- NOTE | 2023-06-26 19:22 | MR ---
EXAMINATION TYPE: MR Rectal wo con DATE OF EXAM: 06/25/2023 11:24 AM CLINICAL INDICATION:Male, 67 years old with history of C20; PHH, Rectal cancer COMPARISON: Pet/CT 06/14/2023., CT right hip 12/11/2017 TECHNIQUE: Multiplanar, multisequence imaging was performed on a 3T MR scanner with optimized small f ield of view imaging of the rectum. Orthogonal high resolution T2 weighted imaging was obtained thro ugh the rectal mass with additional sequences including T1 weighted images and diffusion weighted niesha ging. IV CONTRAST: None. FINDINGS: The anus rectum and visualized large bowel is no evidence of focal wall thickening. Primary tumor sit e was not provided and there is no imaging demonstrates a mass prior to this exam. Few predominantly right-sided mesorectal fascia lymph nodes measure up to 5 mm are present. These were not seen on CT . These do not demonstrate uptake on pet/CT however this is likely due to the being below the sensitivity of PET/CT given their small size. OTHER: Left fat-containing inguinal hernia. The prostate gland is grossly unremarkable. Scattered col onic diverticula. Bone marrow signal is within normal limits. Mild degeneration changes of the lower spine and bilateral hips. IMPRESSION: Limited exam without primary tumor location or prior imaging showing where the tumor was. 1. No evidence for bowel wall thickening or mass. 2. Nonenlarged right mesorectal lymph node not seen on 12/11/2017 CT. No radiotracer uptake identifie d within this lymph node which could be due to its small size. Attention on follow-up imaging. No add itional evidence for metastatic disease in the [id number].
== END | disposition home or self-care (01) ==
LOC: RADMRIMAIN 08:36
PROVIDERS: ATTEND Internal Medicine Hematology & Oncology
DX: C20 Malignant neoplasm of rectum (principal); M16.0 Bilateral primary osteoarthritis of hip
CPT/HCPCS: 72195